=== PATIENT | female | born 1960 | race African-American/Black ===

== ENCOUNTER → 2017-08-25 18:08 | Outpatient (CLI) | payer MEDICARE, SELFPAY ==
--- NOTE | 2017-08-25 18:25 | XR_ITS ---
XR chest 2V HISTORY: ITS.REASON: MILD INTERMITTENT ASTHMA IN ADULT WITHOUT COMPLICATION ORDERING PHYSICIAN: Gato Arora MD PATIENT AGE: 57 years COMPARISON: 03/17/2016 FINDINGS: The cardiomediastinal silhouette and pulmonary vascularity are within normal limits. There is vague increased density in the anterior clear space measuring approximately 2 x 1.7 cm. This millimeters due to summation artifact. Developing nodule or an area of infiltrate is a consideration. The remaining lungs are clear. Mild degenerative changes thoracic spine. IMPRESSION: 2 cm opacity anterior clear space which may be due to a developing nodule or patchy area of infiltrate. Follow-up chest x-ray recommended. If this persists then, CT may be needed for further evaluation
== END ==
PROVIDERS: PCP Family Medicine; Visit Provider Family Medicine
DX: J45.20 Mild intermittent asthma, uncomplicated (principal)
CPT/HCPCS: 71046

== ENCOUNTER → 2017-09-06 09:57 | Outpatient (CLI) | payer MEDICARE, SELFPAY ==
[2017-09-06 10:18] LABS: Blood Urea Nitrogen 17 mg/dL (7-18); Creatinine,Serum 0.81 mg/dL (0.55-1.02); Estimated Glomerular Filt Rate 73 ml/min (>60); GFR (African American) 88 ML/MIN (>60)
--- NOTE | 2017-09-06 10:27 | CT_ITS ---
CT chest w con HISTORY: Follow-up abnormal chest x-ray, solitary pulmonary nodule, asthma ITS.REASON: ABNORMAL CHEST X-RAY ORDERING PHYSICIAN: Gato Arora MD PATIENT AGE: 57 years TECHNIQUE: Axial images obtained following the administration of 75 mL of Isovue 370 . Sagittal, and coronal reformatted images are also generated and reviewed. COMPARISON: None FINDINGS: There is increased density of the anterior mediastinal fat somewhat diffuse in nature. This may be related to residual thymic tissue.. No hilar mass or adenopathy is evident.. No evidence of aortic aneurysm or central pulmonary embolus. There are 2 nodular opacities along the major fissure inferiorly on the right measuring 4 mm and 5 mm and may be due to small nodes within the fissure. A 4 mm noncalcified nodule present in the right middle lobe laterally. Parenchymal opacity is present in the right lung base medially adjacent to a bone spur from the thoracic spine consistent with an area of atelectasis or fibrosis. There are calcified nodules in the left lower lobe medially and calcified node in the paraesophageal region inferiorly. 3 mm noncalcified nodule left lower lobe. No acute bony anomalies. There is a small hiatal hernia. A 6 mm isodensity involves the hepatic dome on the right and posteriorly nonspecific. IMPRESSION: 1. Radiographic abnormality corresponds to increased density in the anterior mediastinum and may represent residual finding tissue. Mediastinal inflammation or infection would be included in the differential diagnosis. Consider 6 month follow-up to confirm stability or resolution. 2. Scattered noncalcified and calcified pulmonary nodules probably benign. Consider 6 month follow-up. 3. Small hiatal hernia
== END ==
PROVIDERS: Visit Provider Family Medicine
DX: R93.8 Abnormal findings on diagnostic imaging of other specified body structures (principal)
CPT/HCPCS: 36415; 71260; 82565; 84520; Q9967

== ENCOUNTER → 2017-11-24 13:17 | Outpatient (CLI) | payer MEDICARE, SELFPAY ==
--- NOTE | 2017-11-24 13:19 | XR_ITS ---
XR foot wt bearing LT 3V HISTORY: ITS.REASON: pain ORDERING PHYSICIAN: Mari Moreno DPM PATIENT AGE: 57 years COMPARISON: None FINDINGS: There are mild osteoarthritic changes at the first metatarsophalangeal joint. Minimal hypertrophic changes are present along the dorsal aspect of the navicular. There is a small calcaneal spur at 12 mm. No fracture or dislocation. No lytic or blastic change. IMPRESSION: Mild osteoarthritic change, no acute finding
--- NOTE | 2017-11-24 13:19 | XR_ITS ---
XR foot wt bearing RT 3V HISTORY: ITS.REASON: pain ORDERING PHYSICIAN: Mari Moreno DPM PATIENT AGE: 57 years COMPARISON: None FINDINGS: There is mild hallux First metatarsophalangeal angle of 24 degrees with mild osteoarthritis of the first MTP joint and bony hypertrophic change at the distal aspect of the first metatarsal. Hypertrophic changes are present dorsally at the distal talus and navicular. There is mild pes planus. Prominent calcaneal spur is present measuring 13 mm. Minimal calcification is present just anterior to the tip of the calcaneal spur. No fracture or dislocation. No lytic or blastic change. IMPRESSION: Hallux valgus with bunion formation and osteoarthritis of the first MTP joint. Degenerative changes of the talonavicular region
== END ==
PROVIDERS: PCP Family Medicine; Visit Provider Podiatrist
DX: M79.603 Pain in arm, unspecified (principal)
CPT/HCPCS: 73630

== ENCOUNTER → 2018-01-18 10:19 | Outpatient (CLI) | payer MEDICARE, SELFPAY ==
--- NOTE | 2018-01-18 10:25 | NVE_ITS ---
Venous Exam Indications: 729.5 Pain in limb. IMPRESSIONS 1. There is no evidence of significant Reflux. 2. No evidence of deep or superficial vein thrombosis involving the left lower extremity Left lower extremity venous duplex evaluation. Doppler flow study including spectral analysis, color and le scale imaging. Location: Vascular laboratory. Patient status: Outpatient. Tables: Venous flow and imaging: + +-------+ + + Location Overall Flow properties Comments + +-------+ + + Left common femoral Patent Normal phasicity; spontaneous; normal augmentation; compressible + +-------+ + + Left saphenofemoral Patent Compressible junction + +-------+ + + Left profunda femoral Patent Compressible + +-------+ + + Left femoral Patent Normal phasicity; spontaneous; normal augmentation; compressible + +-------+ + + Left greater saphenous Patent Normal phasicity; spontaneous; normal augmentation; compressible + +-------+ + + Left popliteal Patent Normal phasicity; spontaneous; normal augmentation; compressible + +-------+ + + Left posterior tibial Patent Compressible + +-------+ + + Left peroneal Patent Compressible difficult to image. + +-------+ + + Left gastrocnemius Patent Compressible + +-------+ + + Left soleal Patent Compressible + +-------+ + + (Report amended ) Electronically signed by: Bandar Avalos [id number]
== END ==
PROVIDERS: PCP Family Medicine; Visit Provider Family Medicine
DX: M79.605 Pain in left leg (principal)
CPT/HCPCS: 93971

== ENCOUNTER → 2018-02-02 14:13 | Outpatient (CLI) | payer MEDICARE, SELFPAY ==
[2018-02-02 14:45] LABS: Blood Urea Nitrogen 17 mg/dL (7-18); Creatinine,Serum 0.85 mg/dL (0.55-1.02); Estimated Glomerular Filt Rate 69 ml/min (>60); GFR (African American) 83 ML/MIN (>60)
--- NOTE | 2018-02-02 14:46 | CT_ITS ---
CT chest w con HISTORY: Follow-up abnormal chest CT, 6 month follow-up ITS.REASON: ABNORMAL CT ORDERING PHYSICIAN: Emma De La Paz MD PATIENT AGE: 57 years COMPARISON: 09/06/2018 TECHNIQUE: Axial images obtained following the administration of 75 mL of Isovue 370 . Sagittal, and coronal reformatted images are also generated and reviewed. All CT scans at the facility use one or more dose reduction, viz: automated exposure control, ma/kV adjustment per patient size (including targeted exams where dose is matched to indication, i.e. head), or iterative reconstruction technique. FINDINGS: There remains some heterogeneous increased density within the anterior mediastinum which is likely related to residual thymic tissue similar in appearance to the previous exam with some minimal interspersed fat the mediastinum has an otherwise unremarkable appearance. Normal heart size. There is minimal pericardial thickening anteriorly. Small hiatal hernia noted. Fissural nodules are noted on the right inferiorly similar to the previous exam measuring approximately 4 mm. A 4 mm fissural nodules present superiorly as well in the right. Calcified granulomas are noted on the left. No new nodules. No infiltrates or effusions. No acute bony anomalies. Upper abdominal images show a small isodensity of the right hepatic lobe along the hepatic dome at 6 mm unchanged. IMPRESSION: 1. Residual soft tissue density in the anterior mediastinum consistent with fibrous and could be related to rebound thymic hyperplasia or lymphoid hyperplasia of the thymus. The latter may be associated with myasthenia gravis, lupus, rheumatoid, scleroderma, or Graves' disease. 2. Small fissural nodules on the right unchanged. 3. Small hiatal hernia
== END ==
PROVIDERS: Family Provider Family Medicine; PCP Family Medicine; Visit Provider Family Medicine
DX: R93.8 Abnormal findings on diagnostic imaging of other specified body structures (principal)
CPT/HCPCS: 36415; 71260; 82565; 84520; Q9967

== ENCOUNTER → 2018-07-05 11:10 | Outpatient (CLI) | payer MEDICARE, SELFPAY | PROVIDERS: Visit Provider Surgery | DX: L97.311 Non-pressure chronic ulcer of right ankle limited to breakdown of skin (principal) | CPT/HCPCS: 87070; 87077; 87186; 87205 ==

== ENCOUNTER 2018-07-18 10:19 | Outpatient (CLI) | payer MEDICARE, SELFPAY ==
[2018-07-18 10:55] VITALS: BP 136/84; PULSE 66; RESP 20; TEMP 36.9; O2SAT 95
[2018-07-18 11:55] VITALS: BP 102/55; PULSE 68; RESP 20; TEMP 37.1; O2SAT 96
[2018-07-18 12:55] VITALS: BP 118/74; PULSE 68; RESP 20; TEMP 36.9; O2SAT 95
[2018-07-18 14:20] VITALS: BP 112/74; PULSE 68; RESP 20; TEMP 36.9; O2SAT 95
== END 2018-07-18 14:20 | disposition home or self-care (01) ==
LOC: INF 10:20
PROVIDERS: Visit Provider Surgery
DX: L97.311 Non-pressure chronic ulcer of right ankle limited to breakdown of skin (principal)
CPT/HCPCS: 96365; 96366; J2407

== ENCOUNTER → 2018-08-07 15:09 | Outpatient (CLI) | payer MEDICARE, SELFPAY | PROVIDERS: Visit Provider Surgery | DX: L97.311 Non-pressure chronic ulcer of right ankle limited to breakdown of skin (principal) | CPT/HCPCS: 87070; 87077; 87186; 87205 ==

== ENCOUNTER 2018-09-06 14:30 | Outpatient (RCR) | payer MEDICARE, SELFPAY | END 2018-09-06 14:35 | disposition home or self-care (01) | LOC: PT 14:30 | PROVIDERS: Visit Provider Surgery | DX: L97.311 Non-pressure chronic ulcer of right ankle limited to breakdown of skin (principal) | CPT/HCPCS: 29580; 97162; 97597 ==

== ENCOUNTER 2019-04-03 16:00 | Outpatient (RCR) | payer MEDICARE, SELFPAY | END 2019-04-03 16:05 | disposition home or self-care (01) | LOC: PT 16:00 | PROVIDERS: PCP Family Medicine | DX: I89.0 Lymphedema, not elsewhere classified (principal) | CPT/HCPCS: 97140; 97163; 97597; 97760 ==

== ENCOUNTER → 2019-07-24 15:15 | Outpatient (CLI) | payer MEDICARE, SELFPAY ==
--- NOTE | 2019-07-24 15:21 | XR_ITS ---
PROCEDURE: XR ANKLE RT MIN 3V CLINICAL INDICATION: NON PRESSURE CHRONIC ULCER, R/O OSTEOMYELITIS COMPARISON: XR ANKLE RT MIN 3V from 02/17/2019 FINDINGS: No fracture, dislocation, lytic change, or blastic change evident. No significant degenerative change. There is mild hypertrophic change of the talonavicular joint. Prominent calcaneal spurs noted with some calcification of the plantar fascia posteriorly IMPRESSION: No change with no acute finding Dictated by: Romain Mckoy MD 07/24/2019 17:16 Electronically signed by Romain Mckoy MD in [place] 07/24/2019 17:16
== END ==
PROVIDERS: PCP Family Medicine; Visit Provider Family Medicine
DX: M79.671 Pain in right foot (principal); M25.571 Pain in right ankle and joints of right foot; L97.909 Non-pressure chronic ulcer of unspecified part of unspecified lower leg with unspecified severity
CPT/HCPCS: 73610

== ENCOUNTER → 2021-01-20 15:13 | Outpatient (CLI) | payer MEDICARE, SELFPAY ==
--- NOTE | 2021-01-20 15:23 | XR_ITS ---
PROCEDURE: XR ACUTE ABDOMEN SERIES CLINICAL INDICATION: ABN PAIN COMPARISON: No exams were available for comparison FINDINGS: Cardiomegaly without failure. Lungs are clear Upright and supine views of the abdomen demonstrates nonspecific bowel gas pattern. There are few small air-fluid levels in the right mid abdominal region. No free air apparent. There are multiple pelvic phleboliths. Degenerative changes are present in the lumbar spine and hips. Other findings:None. IMPRESSION: Nonspecific bowel gas pattern with a few scattered air-fluid levels within nondistended small bowel in the right mid abdominal region. Dictated by: Romain Mckoy MD 01/20/2021 17:02 Romain Mckoy MD in [place] 01/20/2021 17:02
== END ==
PROVIDERS: PCP Family Medicine; Visit Provider Nurse Practitioner Family
DX: R10.9 Unspecified abdominal pain (principal)
CPT/HCPCS: 74021

== ENCOUNTER → 2021-11-20 15:36 | Outpatient (CLI) | payer MEDICARE, SELFPAY ==
[2021-11-20 16:35] LABS: Adenovirus F 40/41, stool Not Detected (NotDetected); Astrovirus Not Detected (NotDetected); Campylobacter Not Detected (NotDetected); Clostridium Difficile A/B, PCR Not Detected (NotDetected); Cryptosporidium Not Detected (NotDetected); Cyclospora Cayetanesis Not Detected (NotDetected); Entamoeba histolytica Not Detected (NotDetected); Enteroaggregative E coli Not Detected (NotDetected); Enteropathogenic E coli Not Detected (NotDetected); Enterotoxigenic E coli Not Detected (NotDetected); Giardia lamblia Not Detected (NotDetected); Norovirus Not Detected (NotDetected); Plesimonas Shigalloides, PCR Not Detected (NotDetected); Rotavirus A Not Detected (NotDetected); Salmonella, PCR Not Detected (NotDetected); Sapovirus Not Detected (NotDetected); Shiga-like toxin E coli Not Detected (NotDetected); Shigella Enterovasive E coli Not Detected (NotDetected); Vibrio Cholerae Not Detected (NotDetected); Vibrio, PCR Not Detected (NotDetected); Yersinia Entercolitica, PCR Not Detected (NotDetected)
== END ==
PROVIDERS: Visit Provider Physician Assistant
DX: R19.7 Diarrhea, unspecified (principal)
CPT/HCPCS: 87507

== ENCOUNTER → 2022-01-14 16:05 | Outpatient (CLI) | payer MEDICARE, SELFPAY ==
--- NOTE | 2022-01-14 16:12 | XR_ITS ---
FINAL REPORT CLINICAL HISTORY: Acute bronchitis, unspecified COMPARISON: 01/20/2021 FINDINGS: Two views of the chest were obtained. The heart size and pulmonary vascularity are within normal limits. The mediastinum is normal. No acute pulmonary abnormality is identified. There is no pneumothorax. The bony thorax is intact. IMPRESSION: No active cardiopulmonary disease. Reviewed, Interpreted and Dictated by Thmoas Morales III, MD Transcribed by Paulina Melgoza Authenticated and [facility][1]
== END ==
PROVIDERS: PCP Family Medicine; Visit Provider Family Medicine
DX: J20.9 Acute bronchitis, unspecified (principal)
CPT/HCPCS: 71046

== ENCOUNTER 2022-06-26 15:35 | Emergency (ER) | payer MEDICARE, SELFPAY ==
[2022-06-26 17:07] VITALS: BP 0/0; PULSE 0; RESP 18; TEMP -17.7; TEMP 0; O2SAT 0
--- NOTE | 2022-06-26 18:52 | PC.NURSE ---
1707- out to lobby to room pt in ER at this time, pt in wheelchair, pt reports she is waiting on her daughter to come a pick her up. Pt reports has an venous ulcer on her RLE near her ankle, states has had ulcer since 2018. Pt reports she has been worsening burning pain recently. Notified pt I have a room open in the ER at this time, pt reports she does not want to be seen unless I can guarantee her that she can be admitted overnight. Explained to pt that she would have to be seen in ER and evaluated by the provider before that decision can be made. Pt reports she will not have a ride after dark so she does not want to stay. Offered to take pts vitals, pt declined pt states I know my vitals are fine . Pt reports she will go see her family doctor on tuesday. Notified pt that we are happy to see her in the ER and evaluate her now or at anytime, pt verbalized understanding.
== END 2022-06-26 17:07 | disposition left against medical advice (07) ==
LOC: ER 17:50
PROVIDERS: Emergency Provider Emergency Medicine; PCP Family Medicine
DX: L97.519 Non-pressure chronic ulcer of other part of right foot with unspecified severity (principal); Z79.1 Long term (current) use of non-steroidal anti-inflammatories (NSAID); Z53.21 Procedure and treatment not carried out due to patient leaving prior to being seen by health care provider
CPT/HCPCS: 99211

== ENCOUNTER → 2023-06-15 15:30 | Outpatient (CLI) | payer MEDICARE, SELFPAY ==
[2023-06-15 15:55] LABS: Basophils # 0.1 K/mm3 (0-0.2); Basophils % 1.2 % (0.1-2.0); Eosinophils # 0.3 K/mm3 (0.0-0.4); Eosinophils % 3.8 % (0.1-12.0); Hematocrit 45.4 % (37.0-47.0); Hemoglobin 14.4 g/dL (12.2-16.2); Lymphocytes # 2.2 K/mm3 (0.7-4.5); Lymphocytes % 28.7 % (10-50); Mean Corpuscular HGB Conc 31.7 g/dL (31.8-35.4); Mean Corpuscular Hemoglobin 26.8 pg (27.0-31.2); Mean Corpuscular Volume 84.7 fl (81-99); Mean Platelet Volume 8.6 fl (7.4-10.4); Monocytes # 0.3 K/mm3 (0.1-1.0); Monocytes % 3.7 % (1.7-9.3); Neutrophils # 4.7 K/mm3 (1.8-7.8); Neutrophils % 62.6 % (37.0-80.0); Platelet Count 267 K/mm3 (142-424); Red Blood Count 5.36 M/mm3 (4.20-5.40); Red Cell Distribution Width 14.1 % (11.5-17.5); White Blood Count 7.6 K/mm3 (4.8-10.8)
[2023-06-15 16:16] LABS: Chloride 105 mmol/L (98-107); Sodium 141 mmol/L (136-145)
[2023-06-15 16:18] LABS: Alanine Aminotransferase 23 U/L (12-78); Blood Urea Nitrogen 16 mg/dl (7-17); Estimated Glomerular Filt Rate 72 ml/min (>60); GFR (African American) 88 ML/MIN (>60)
[2023-06-15 16:19] LABS: Albumin Level 4.6 g/dl (3.5-5.0); Albumin/Globulin Ratio 1.5 (1.1-1.8); Alkaline Phosphatase 71 U/L (38-126); Aspartate Amino Transferase 30 U/L (14-36); Bilirubin,Total 0.9 mg/dl (0.2-1.3); Calcium 9.8 mg/dl (8.4-10.2); Carbon Dioxide 30 mmol/L (22.0-30.0); Glucose 94 mg/dl (74-100); Total Protein,Serum 7.6 g/dl (6.3-8.2)
== END ==
PROVIDERS: PCP Family Medicine; Visit Provider Nurse Practitioner
DX: H69.90 Unspecified Eustachian tube disorder, unspecified ear (principal); H93.8X3 Other specified disorders of ear, bilateral; J32.9 Chronic sinusitis, unspecified; J34.3 Hypertrophy of nasal turbinates
CPT/HCPCS: 36415; 80053; 85025

== ENCOUNTER → 2023-06-22 09:08 | Day surgery (SDC) | payer MEDICARE, SELFPAY ==
[2023-06-22 08:44] VITALS: BMI 36.9
[2023-06-22] MEDS: LACTATED RINGERS 1000ML 1,000 ML 25 ML IV (09:31)
--- NOTE | 2023-06-22 09:37 | ECG_ITS ---
APPROVED REPORT Exam: Resting ECG HR:51 bpm ECG Measurements Heart Rate [address] 133 P 52 QRSd 139 QRS -39 QT 494 T 45 QTc 471 Conclusion SINUS BRADYCARDIA LEFT AXIS DEVIATION [QRS AXIS < -30] LEFT BUNDLE BRANCH BLOCK [120+ ms QRS DURATION, 80+ ms Q/S IN V1/V2, 85+ ms R IN I/aVL/V5/V6] ABNORMAL ECG UNCONFIRMED REPORT Electronically signed by : Gato Land MD 06/24/2023 08:04:06
--- NOTE | 2023-06-22 10:13 | SUR.PREOP ---
Procedeure postponed per Dr. Reyes and Rosette Conrad pending cardiac clearance due to abnormal EKG. Cardiology appointment scheduled for today (06/22)
== END ==
LOC: OR 09:09
PROVIDERS: PCP Family Medicine; Visit Provider Otolaryngology
PROC: (CPT 69436; principal; 2023-06-22 10:00)
DX: Z53.09 Procedure and treatment not carried out because of other contraindication (principal); R94.31 Abnormal electrocardiogram [ECG] [EKG]; H69.93 Unspecified Eustachian tube disorder, bilateral
CPT/HCPCS: 69436; 93005

== ENCOUNTER → 2023-06-24 07:08 | Outpatient (CLI) | payer MEDICARE, SELFPAY ==
--- NOTE | 2023-06-24 | CA_ITS ---
APPROVED REPORT Exam: Pharmacologic Technologist: Jaky Beckett, Ht: 5 ft 9 in Wt: 250 lbs BSA: 2.27 m2 HR: 61 bpm BP: 164/77 mmHg Rhythm: NSR, LBBB, rightward axis Medical History Medications: AZelastine,,,,, Stress Test Details Test: LEXISCAN HR Resting HR: 59 bpm Max Heart Rate (APMHR): 157 bpm Max HR Achieved: 92 bpm Target HR (85% APMHR): 133 bpm % of APMHR: 59 Recovery HR: 79 bpm BP Resting BP: 164/77 mmHg Max BP: 164/77 mmHg Recovery BP: 141.0/85.0 mmHg ECG Resting ECG: NSR, LBBB, rightward axis Stress ECG: No significant ST changes Arrhythmia: PVCs Clinical Exercise duration: 04:00 min Highest Stage Achieved: Stress ECG Conclusion During lexiscan pt experinced mild head discomfort. No CP noted. Rare PVC noted. No significant ST changes Conclusion: Nondiagnostic ECG stress test due to baseline left bundle branch block. Myoview images reported separately. Test Summary REST . . . . . . . Sitting REST 03:23 . . 59 . 164/ 77 . . Stage 1 01:00 . . 78 . . . . Stage 2 01:00 . . 80 . . . . Stage 3 01:00 . . 68 . 152/ 77 . . Stage 4 01:00 . . 70 . 147/ 78 . Stop exercise at 04:00 RECOVERY 01:00 . . 71 . 151/ 75 . . RECOVERY 02:00 . . 59 . 151/ 75 . . RECOVERY 03:00 . . 75 . 141/ 85 . . RECOVERY 04:00 . . 69 . 134/ 85 . . Electronically signed by : Romina Gallo MD 06/26/2023 22:42:51
--- NOTE | 2023-06-24 07:08 | CA_ITS ---
APPROVED REPORT EXAM: Comprehensive 2D, Doppler, and color-flow Echocardiogram Supply Cataloguer: Apoorva Mccarty RVT Ht: 5 ft 9 in Wt: 250lbs BSA: 2.27 BP: 142/73 mmHg Indications: ABN EKG,PRE-OP,LBBB,ABLATION ,EDEMA,SOA,BLIND 2D Dimensions LA Volume 88.70 mL LA Volume Index 39.07 mL/m2 (M/F) 16-34 M-Mode Dimensions RVDd 2.73 cm (0.9-2.6) LA Diam 4.68 cm (1.9-4.0) LVDd 4.86 cm (3.5-5.7) LVDs 3.42 cm (3.5-5.7) IVSd 0.88 cm (0.6-1.1) PWd 0.68 cm (0.6-1.1) EF (Teich) 56.50% FS 29.60% EDV (Teich) 110.70 mL TAPSE 3.14 (<1.7) ESV (Teich) 48.10 mL LV Diastology E Decel Time 300 (160-240 msec) E/A Ratio 1.1 Aortic Valve KWAKU Index 1.29 cm2/m2 AoV Peak Ranjeet. 151.0 (50-130 cm/s) AI PHT 500.00 ms AO Peak GR. 9.20 mmHg AO Mean GR. 5.50 (<5 mmHg) AO VTI 30.4 (18-25 cm) KWAKU (VTI) 3.00 (2.5-4.5 cm2) Mitral Valve MV E Max Ranjeet. 84.0 (40-130 cm/s) MV A Velocity 78.0 (40-130 cm/s) E/A Ratio 1.07 MV PHT 88.0 ms Pulmonary Valve PV Peak Velocity 83.0 (50-150 cm/s) Tricuspid Valve TR P. Velocity 245.00 cm/s RAP Estimate 10.00 mmHg RVSP 34.00 mmHg Left Ventricle The left ventricle is normal size. The left ventricular systolic function is normal. The left ventricular ejection fraction is within the normal range. There is normal left ventricular wall thickness. The septum appears asynchronous. There is mild hypokinesis of the septal and inferoseptal LV vazquez. The left ventricular diastolic function is normal. LVEF is 60%. Right Ventricle The right ventricle is normal size. The right ventricular systolic function is normal. Atria The left atrium size is normal. The right atrium size is normal. There is no Doppler evidence of interatrial shunt. Aortic Valve The aortic valve is mildly thickened. There is no aortic valvular stenosis. Mild aortic regurgitation. Mitral Valve The mitral valve is normal in structure. No mitral regurgitation. Tricuspid Valve The tricuspid valve leaflets are thin and pliable. Trace tricuspid regurgitation. RVSP is 20-25 mmHg. Pulmonic Valve The pulmonary valve is normal in structure. Mild pulmonic regurgitation. Great Vessels The aortic root is normal in size. The ascending aorta is not well-visualized. IVC is normal in size and collapses >50% with inspiration. Pericardium There is no pericardial effusion. Other Information Study Quality: Fair Conclusion Normal biventricular systolic function. Asynchronous septum. Mild hypokinesis of the septal and inferoseptal LV vazquez. Mild AI. Electronically signed by : Romina Gallo MD 06/27/2023 21:08:30
--- NOTE | 2023-06-24 07:14 | NM_ITS ---
APPROVED REPORT Exam: Nuclear Stress Test Indication: fatigue..soa..pre-op Patient Location: Outpatient Stress Tech: Jaky DOTSON Tech:Maureen Murray OSMANYKatrin RT(R)(N) Ht: 5 ft 9 in Wt: 250 lbs Bra Size: 40c HR: 59 bpm BP: 164/77 mmHg BSA: 2.27 m2 TID: 1.00 BMI: 36.9 History: fatigue..soa..pre-op Procedure: Patient received 0.4 mg of intravenous Lexiscan, resting heart rate 59 bpm, resting blood pressure 164/77 mmHg, with Lexiscan maximum heart rate achieved was 92 bpm which is 85 % of the maximum predicted heart rate and blood pressure was 164/77 mmHg. With Lexiscan, patient denied any complaint of chest pain. The patient was not able to lay on her abdomen for strict for prone images. Cardiac Stress and Resting SPECT Images: Cardiac Stress and Resting SPECT images were obtained using technetium 99m Myoview 31.5 mCi stress and 10.23 mCi at rest. The patient was unable to lie on her abdomen. Therefore, prone stress imaging could not be performed. This may affect the diagnostic interpretation of the study findings. Resting and stress imaging in supine position demonstrate a small sized, mild, reversible perfusion defects in the LV apex. Gated imaging demonstrates normal global and regional LV systolic function. LVEF is calculated at 60%. Conclusion: Small sized, mild, reversible perfusion defects in the LV apex. Findings are suggestive of reversible ischemia. Gated imaging demonstrates normal global and regional LV systolic function. LVEF is calculated at 60%. Electronically signed by : Romina Gallo MD 06/26/2023 22:47:35
[2023-06-24] MEDS: ISOTOPE MYOVIEW (PER STUDY) 1 DOSE IV (10:10)
[2023-06-24] MEDS: SODIUM CHLORIDE 0.9% 10ML SYR (RAD ONLY) 10 ML IV ×2 (10:10→10:11)
[2023-06-24] MEDS: REGADENOSON 0.4MG/5ML SYRINGE 0.400000000000000022 MG IV (10:10)
== END ==
LOC: RAD 07:08
PROVIDERS: PCP Family Medicine; Visit Provider Physician Assistant
DX: Z01.810 Encounter for preprocedural cardiovascular examination (principal); I45.2 Bifascicular block; R06.09 Other forms of dyspnea
CPT/HCPCS: 78452; 93017; 93018; 93306; A9502; J2785